=== PATIENT | female | born 1960 | race Caucasian/White ===

== ENCOUNTER → 2016-09-21 | Outpatient (CLI) | payer BC ==
[~2016-09-21] VITALS: Ht 157.5 cm; Wt 54.4 kg
[~2016-09-21] MED LIST: ADVIL,NUPRIN,M200 MG PO; BEANO PO; BLACK COHOSH200 MG PO; CALCIUM WITH V1 EAC2 PO; FISH OIL 1,2001 EAC4 PO; GLUCOSAMINE-MS1 EAC3 PO; L-LYSINE500 M1 PO; MAGNESIUM OXID200 MG PO; MELATONIN1 MG PO; MULTIPLE VITAM1 EAC1 PO
== END | disposition home or self-care (01) ==
LOC: AMB 10:24
PROC: 0DJD8ZZ Inspection of Lower Intestinal Tract, Via Natural or Artificial Opening Endoscopic (ICD-10-PCS; principal; 2016-09-21)
DX: Z12.11 Encounter for screening for malignant neoplasm of colon (principal); K57.90 Diverticulosis of intestine, part unspecified, without perforation or abscess without bleeding; K64.8 Other hemorrhoids; Z87.891 Personal history of nicotine dependence; Z80.0 Family history of malignant neoplasm of digestive organs